=== PATIENT | female | born 1980 | race Caucasian/White ===

== ENCOUNTER 2025-02-19 07:53 | Day surgery (SDC) | payer MEDICAID ==
[~2025-02-19] VITALS: Ht 162.6 cm; Wt 70.5 kg
[~2025-02-19 07:53] MED LIST: CHOL500049 PO; ESTR0.6261 PO; LORA10CA PO; PROG100C11 PO; SERT-434 PO
[2025-02-19 08:28] VITALS: BP 112/70; PULSE 94; RESP 11
[2025-02-19] MEDS ORDERED: simethicone 40mg/0.6ml oral drops 30ml ONE (08:49)
[2025-02-19] MEDS ORDERED: fentaNYL/PF 50MCG/1 ML 2ML syringe ONE (08:52)
[2025-02-19] MEDS ORDERED: midazolam 1 mg/ML 2ml injection ONE (08:52)
[2025-02-19] MEDS ORDERED: propofol inj 20 ML IV ONE (08:52)
[2025-02-19 09:29] VITALS: BP 94/61; PULSE 97; RESP 13; O2SAT 100
[2025-02-19 09:37] VITALS: BP 86/58; PULSE 88; RESP 13; O2SAT 97
[2025-02-19 09:42] VITALS: BP 95/63; PULSE 79; RESP 15; O2SAT 99
[2025-02-19 09:52] VITALS: BP 97/64; PULSE 80; RESP 11; O2SAT 99
[2025-02-19 10:02] VITALS: BP 102/62; PULSE 80; RESP 12; O2SAT 98
--- NOTE | 2025-02-20 15:16 | PATHOLOGY REPORT ---
[facility] [address] [place] [address] SURGICAL PATHOLOGY REPORT CaseNumber: [id number] Surgeon:Niko Cox MD CLINICAL INFORMATION CLINICAL INFORMATION: Family history of colon cancer in first degree relative before age 60 years. Cl inically significant diarrhea of unexplained origin. Epigastric abdominal pain, functional dyspepsia. DIAGNOSIS DIAGNOSIS: A.STOMACH, ANTRUM; BIOPSY - FOCALLY ACTIVE CHRONIC GASTRITIS. - NEGATIVE FOR INTESTINAL METAPLASIA - NEGATIVE FOR H. PYLOR (CONFIRMED WITH IMMUNOSTAIN). DIAGNOSIS: B.COLON, RANDOM; BIOPSY - NORMAL COLONIC MUCOSA. MICROSCOPIC DESCRIPTION A. STOMACH, ANTRUM MICROSCOPIC DESCRIPTION: A single H&E slide with multiple levels of gastric mucosa is reviewed. The gastric biopsy shows mild chronic gastritis with focal intraluminal neutrophils. The lamina propria i s expanded by lymphocytes and plasma cells. An alcian blue stain is negative for intestinal mucin An immunoperoxidase stain for H. pylori was performed and shows no stainable organisms. B. COLON, RANDOM MICROSCOPIC DESCRIPTION: Examination of the H&E stained slide shows colonic mucosa without evidence o f significant acute inflammation or epithelial injury. There is no evidence for lymphocytic or collag enous colitis. The architectural changes of chronic colitis are not appreciated. GROSS DESCRIPTION A. STOMACH, ANTRUM GROSS DESCRIPTION: Received in a container of formalin labeled with the patients name, number, and "a ntrum BX" are 2 pieces of ellison tissue 0.2 and 0.3 cm. The specimen is entirely submitted as A1. The t mariluz at which the specimen was removed was 0900. The time at which the specimen was placed in formalin was 0904. B. COLON, RANDOM GROSS DESCRIPTION: Received in a container of formalin labeled with the patient's name, number, and " random colon BX" is a 0.8 x 0.5 x 0.2 cm aggregate of irregularly shaped pieces of ellison tissue. The sp ecimen is entirely submitted as B1. The time at which the specimen was removed was 0914. The time at which the specimen was placed in formalin was 0919. Electronically signed by: Joe Herrmann, 02/20/2025 2:45:00 PM
== END 2025-02-19 10:15 | disposition home or self-care (01) ==
LOC: GI LAB 07:53
PROVIDERS: ATTEND Internal Medicine Gastroenterology
DX: R19.7 Diarrhea, unspecified (principal); K57.30 Diverticulosis of large intestine without perforation or abscess without bleeding; K29.50 Unspecified chronic gastritis without bleeding; K30 Functional dyspepsia; K31.89 Other diseases of stomach and duodenum; K21.9 Gastro-esophageal reflux disease without esophagitis; Z88.6 Allergy status to analgesic agent; Z98.890 Other specified postprocedural states; Z79.899 Other long term (current) drug therapy; Z80.0 Family history of malignant neoplasm of digestive organs
CPT/HCPCS: 43239; 45380; J2250; J2704; J3010; J7030; Z7512

== ENCOUNTER 2025-09-14 10:44 | Outpatient (CLI) | payer MEDICAID ==
[2025-09-14] MEDS ORDERED: iohexol 300mg/ml 100ml inj. ONE (11:10)
--- NOTE | 2025-09-14 11:57 | RADIOLOGY REPORT ---
CLINICAL HISTORY: HYPERTROPHY OF TONSILS TECHNIQUE: CT of the neck was performed with IV contrast. 98 mL of omnipaque 300 was administered intravenously. This exam was performed according to our departmental dose optimization program. Up-to-date CT equipment and radiation dose reduction techniques are utilized as appropriate. CTDI 15 DLP 434 COMPARISON: None FINDINGS: The parotid, submandibular, and thyroid glands are unremarkable. The airway is patent. The epiglottis and palatine/ lingual tonsils are unremarkable. The adenoids appear within normal limits. No enlarged lymph node is seen. No acute osseous abnormality is seen. The imaged upper lungs are clear. The imaged intracranial structures are grossly unremarkable. IMPRESSION: No acute abnormality.
== END 2025-09-14 23:59 | disposition home or self-care (01) ==
LOC: RAD 10:44
DX: J35.1 Hypertrophy of tonsils (principal)
CPT/HCPCS: 70491; Q9967